=== PATIENT | female | born 1980 | race Caucasian/White ===

== ENCOUNTER 2020-11-16 07:50 | Emergency (ER) | payer SELFPAY ==
[2020-11-16] MEDS ORDERED: NAPROXEN500 MG PO (08:06)
[2020-11-16 08:12] VITALS: BP 154/88
== END 2020-11-16 08:18 | disposition home or self-care (01) | DRG 605 ==
LOC: ED 07:50
DX: S80.12XA Contusion of left lower leg, initial encounter (principal); F17.200 Nicotine dependence, unspecified, uncomplicated; W22.03XA Walked into furniture, initial encounter

== ENCOUNTER 2020-11-18 20:40 | Emergency (ER) | payer SELFPAY ==
[~2020-11-18] VITALS: Ht 165.1 cm; Wt 63.6 kg
[~2020-11-18 20:40] MED LIST: NAPROXEN500 MG PO
[2020-11-18] MEDS ORDERED: KEFLEX500 M1 PO (22:51)
[2020-11-18] MEDS ORDERED: ULTRAM50 M1 PO (22:51)
[2020-11-18] MEDS ORDERED: BACTRIM DS1 TAB PO (22:51)
[2020-11-18 23:10] VITALS: BP 129/81
--- NOTE | 2020-11-21 10:18 | NUR ---
Patient was contacted and notified on 11/21/20 to discontinue rx for cephalexin and to continue rx for Bactrim DS due to culture results of MRSA showing susceptibility to Bactrim. Patient verbalized understanding.
== END 2020-11-18 23:10 | disposition home or self-care (01) | DRG 603 ==
LOC: ED 20:40
PROC: 0H94XZZ Drainage of Neck Skin, External Approach (ICD-10-PCS; principal; 2020-11-18)
DX: L02.11 Cutaneous abscess of neck (principal); F17.210 Nicotine dependence, cigarettes, uncomplicated

== ENCOUNTER 2020-11-19 19:37 | Emergency (ER) | payer SELFPAY ==
[~2020-11-19] VITALS: Ht 165.1 cm; Wt 63.6 kg
[~2020-11-19 19:37] MED LIST changes: +BACTRIM DS1 TAB PO; +KEFLEX500 M1 PO; +ULTRAM50 M1 PO
[2020-11-19 20:39] VITALS: BP 135/86
== END 2020-11-19 20:39 | disposition home or self-care (01) | DRG 951 ==
LOC: ED 19:37
DX: Z48.01 Encounter for change or removal of surgical wound dressing (principal); F17.210 Nicotine dependence, cigarettes, uncomplicated